=== PATIENT | male | born 1940 | race Caucasian/White ===

== ENCOUNTER 2017-10-20 06:51 | Day surgery (SDC) | payer MEDICARE, BC ==
[2017-10-13 16:11] VITALS: BMI 31.4
[2017-10-20 07:49] LABS: #Eosinphils 0.2 thou/uL (0.0-0.7); #Lymphocytes 2.2 thou/uL (1.20-3.40); #Monocytes 0.7 thou/uL (0.11-0.59); #Neutrophils 3.6 thou/uL (1.40-6.50); %Basophils 0.4 % (0.0-1.0); %Lymphocytes 33.5 % (21.0-51.0); %Monocytes 9.8 % (0.0-10.0); %Neutrophils 53.4 % (42.0-75.0); Hemoglobin 15.8 g/dL (14.0-18.0); Mean Corpuscular HGB CONC 34.4 g/dL (32.0-36.0); Mean Corpuscular Hemoglobin 32.2 pg (27.0-31.0); Mean Corpuscular Volume 93.7 fl (80.0-94.0); Mean Platelet Volume 9.6 fL (7.4-10.4); Platelet Count 177 thou/uL (130-400); RBC Distribution Width 12.7 % (11.5-14.5); White Blood Cell (WBC) Count 6.7 thou/uL (4.8-10.8)
[2017-10-20 07:58] LABS: PTT 31.4 SEC (22.9-36.1); Prothrombin Time 13.1 SEC (12.0-14.7)
[2017-10-20 08:01] LABS: ALT (SGPT) 34 U/L (8-55); AST (SGOT) 23 U/L (5-34); Albumin 4.7 g/dL (3.4-4.8); Alkaline Phosphatase 99 U/L (40-150); Anion Gap 14 mmol/L (10-20); BUN (Urea Nitrogen) 16 mg/dL (8.4-25.7); Bilirubin, Total 1.2 mg/dL (0.2-1.2); Calc. Creatinine Clearance 104 mL/min (70-130); Calcium 10.4 mg/dL (7.8-10.44); Carbon Dioxide 24 mmol/L (23-31); Cardiac Risk 3.3 (Less than 4.5); Chloride 105 mmol/L (98-107); Cholesterol 120 mg/dl (< 200 Desired); Estimated GFR-MDRD Greater than 90; Glucose 116 mg/dL (83-110); HDL Cholesterol 36 mg/dL (>60 Neg Risk); LDL Cholesterol, Calculated 62 mg/dL; Potassium 4.1 mmol/L (3.5-5.1); Protein, Total 7.7 g/dL (5.8-8.1); Sodium 139 mmol/L (136-145); Triglycerides 108 mg/dL (Less than 150)
[2017-10-20] MEDS ORDERED: Midazolam HCl 2 mg/2 ml Vial ONE (08:03)
[2017-10-20] MEDS ORDERED: Lidocaine 1% (PF) 30 ML VIAL ONE (08:03)
[2017-10-20] MEDS ORDERED: Fentanyl 100 MCG/2 ML VIAL ONE (08:03)
[2017-10-20] MEDS ORDERED: Diazepam 5 MG TAB ONE (08:18)
--- NOTE | 2017-10-20 08:52 | RAD ---
PORTABLE CHEST: History: Pre op. Comparison: 09-13-14 FINDINGS: Heart size is within normal limits with atherosclerotic changes of the aorta. Lungs are clear of infi ltrates. A dorsal column stimulator is present. IMPRESSION: No active intrathoracic disease. POS: [facility]
[2017-10-20] MEDS ORDERED: Iopamidol 370 76% 100 ML VIAL ONE (10:38)
--- NOTE | 2017-10-20 12:24 | EKG ---
Test Reason : PREOP Blood Pressure : / mmHG Vent. Rate : 066 BPM Atrial Rate : 066 BPM P-R Int : 152 ms QRS Dur : 108 ms QT Int : 406 ms P-R-T Axes : 008 -08 020 degrees QTc Int : 425 ms Sinus rhythm with Premature supraventricular complexes Inferior infarct , age undetermined Abnormal ECG When compared with ECG of 14-SEP-2014 09:22, Premature ventricular complexes are no longer Present Premature supraventricular complexes are now Present MN interval has decreased ST no longer elevated in Inferior leads Confirmed by JOVANNI CANALES ([id number]) on 10/20/2017 12:24:07 PM Referred By: TRACY Confirmed By:JOVANNI CANALES
--- NOTE | 2017-10-21 15:15 | HP ---
HISTORY OF PRESENT ILLNESS: Ms. Aguiar is a very pleasant 69-year-old gentleman who was seen and mounika luated by Christine Robles recently. He complained of shortness of breath. He continued to have shortn ess of breath despite medical therapy. His last stress test performed on 02/26/2017 showed a normal uptake on rest and stress with no significant ischemia. He does have a history of a stent placement to the OM branch in addition to the distal LAD. PAST MEDICAL HISTORY: Diabetes mellitus, CAD, spinal fusion, CVA. ALLERGIES: PENICILLIN. HOME MEDICATIONS: Include aspirin, hydrocodone, Nexium, tamsulosin, Tylenol, Ambien, Aspercreme, mul tivitamin, Pepcid, Lyrica, Toprol, fish oil, metformin, Eliquis, atorvastatin, lisinopril. REVIEW OF SYSTEMS: A 10-point review of systems is reviewed and is as above, otherwise negative. PHYSICAL EXAMINATION: VITAL SIGNS: Blood pressure 110/70, pulse 80, respirations 20. GENERAL: Patient is a pleasant male who is in no acute distress. The patient appears his stated age. NEUROLOGIC: The patient is alert and oriented times 3 with no focal neurologic deficits. HEENT: Sclerae without icterus. Mouth has moist mucous membranes with normal pallor. NECK: No JVD. Carotid upstroke brisk. No bruits bilaterally. LUNGS: Clear to auscultation with unlabored respirations. BACK: No scoliosis or kyphosis. CARDIAC: Regular rate and rhythm with normal S1 and S2. No S3 or S4 noted. No significant rubs, mur murs, thrills, or gallops noted throughout the precordium. PMI is not displaced. There is no parast ernal heave. ABDOMEN: Soft, nontender, nondistended. No peritoneal signs present. No hepatosplenomegaly. No abn ormal striae. EXTREMITIES: 2+ femoral and 2+ dorsalis pedis pulses. No cyanosis, clubbing, or edema. SKIN: No gross abnormalities. PERTINENT LABS: Creatinine 0.8. IMPRESSION: 1. Recurrent shortness of breath. 2. Coronary artery disease. 3. Status post stent placement. RECOMMENDATIONS: Mr. Aguiar has failed medical therapy with beta carmen treatment. He would like t o proceed with a more aggressive approach. I discussed the procedure of angiography plus PCI. I dis cussed the procedure in full detail with Mr. Aguiar to include but not limited to the following: Heidi th, stroke, MO, need for emergency surgery, loss of limb, bleeding, and infection, as well as a react ion to the dye causing kidney failure and needing long-term dialysis. I also discussed the risks of PCI to include all of the above including coronary dissection and perforation in addition to acute st ent thrombosis and restenosis. All questions about the procedure were answered. Given the above, th e patient agreed to proceed with coronary angiography and possible PCI. All questions were answered. Given the above, the patient agreed to proceed with above procedure. F maddie recommendations pending the above.
== END 2017-10-20 14:12 | disposition home or self-care (01) ==
LOC: CCL 06:51
PROVIDERS: ATTEND Internal Medicine Cardiovascular Disease
DX: I25.10 Atherosclerotic heart disease of native coronary artery without angina pectoris (principal); I42.9 Cardiomyopathy, unspecified; Z95.5 Presence of coronary angioplasty implant and graft; E11.9 Type 2 diabetes mellitus without complications; Z88.0 Allergy status to penicillin; Z79.01 Long term (current) use of anticoagulants; Z79.4 Long term (current) use of insulin; Z79.899 Other long term (current) drug therapy
CPT/HCPCS: 71045; 76942; 80053; 80061; 85025; 85610; 85730; 93005; 93458; 93798; C1769; 36415; 93010; 99152; J1644; J2001; J2250; J3010

== ENCOUNTER 2017-10-29 08:41 | Outpatient (CLI) | payer MEDICARE, BC ==
--- NOTE | 2017-10-29 09:30 | RAD ---
PA AND LATERAL CHEST: History: Chest wall pain. Comparison: 11-24-16 FINDINGS: The heart size is normal. The aorta is tortuous. Mild chronic change in the upper lung busby again s een. No lobar consolidation, pneumothoraces or pleural effusions identified. Dorsal stimulator leads are again present in the spine. Degenerative change in the thoracic spine. IMPRESSION: No radiographic evidence of acute cardiopulmonary process. POS: [facility]
== END 2017-10-29 08:42 | disposition home or self-care (01) ==
LOC: RAD-FRANK 08:41
PROVIDERS: ATTEND Nurse Practitioner Family
DX: R07.89 Other chest pain (principal)
CPT/HCPCS: 71046

== ENCOUNTER 2018-06-23 12:06 | Outpatient (CLI) | payer MEDICARE, BC ==
--- NOTE | 2018-06-23 14:14 | RAD ---
PA AND LATERAL VIEWS OF CHEST: Date: 06/23/18 HISTORY: Dyspnea. FINDINGS: Comparison made with exam of 10/29/17. The heart size is normal. Mild chronic changes in the lung busby are again seen. No lobar consolidat ion, pneumothoraces, or pleural effusions are noted. The aorta is tortuous. There are degenerative ch anges in the spine. Dorsal column stimulator leads are seen in the spine. IMPRESSION: No radiographic evidence of acute cardiopulmonary process. POS: [facility]
== END 2018-06-23 12:07 | disposition home or self-care (01) ==
LOC: RAD 12:06
PROVIDERS: ATTEND Internal Medicine Critical Care Medicine
DX: R06.00 Dyspnea, unspecified (principal)
CPT/HCPCS: 71046

== ENCOUNTER 2018-07-11 07:23 | Observation (INO) | payer MEDICARE, BC ==
[2018-07-08 14:07] VITALS: BMI 32.6
[2018-07-11 09:10] LABS: #Eosinphils 0.1 thou/uL (0.0-0.7); #Lymphocytes 1.8 thou/uL (1.20-3.40); #Monocytes 0.7 thou/uL (0.11-0.59); #Neutrophils 3.9 thou/uL (1.40-6.50); %Basophils 0.2 % (0.0-1.0); %Eosinophils 1.3 % (0.0-10.0); %Lymphocytes 27.7 % (21.0-51.0); %Neutrophils 59.7 % (42.0-75.0); Hemoglobin 14.6 g/dL (14.0-18.0); Mean Corpuscular HGB CONC 32.8 g/dL (32.0-36.0); Mean Corpuscular Hemoglobin 30.1 pg (27.0-31.0); Platelet Count 195 thou/uL (130-400); RBC Distribution Width 13.2 % (11.5-14.5); Red Blood Cell (RBC) Count 4.85 mill/uL (4.70-6.10); White Blood Cell (WBC) Count 6.5 thou/uL (4.8-10.8)
[2018-07-11 09:33] LABS: Anion Gap 13 mmol/L (10-20); BUN (Urea Nitrogen) 14 mg/dL (8.4-25.7); Calc. Creatinine Clearance 105 mL/min (70-130); Calcium 10.3 mg/dL (7.8-10.44); Carbon Dioxide 22 mmol/L (23-31); Chloride 108 mmol/L (98-107); Estimated GFR-MDRD Greater than 90; Glucose 134 mg/dL (83-110); Potassium 4.4 mmol/L (3.5-5.1); Sodium 139 mmol/L (136-145)
[2018-07-11] MEDS ORDERED: Levofloxacin 500 mg/D5W 100 ml Premix Bag ONE (09:37)
[2018-07-11] MEDS ORDERED: Clindamycin/D5W 900 mg/50 ml Premix Bag ONE (09:37)
[2018-07-11] MEDS ORDERED: Sodium Chloride 0.9% 10 ML ONE (10:14)
[2018-07-11] MEDS ORDERED: Fentanyl 100 MCG/2 ML VIAL ONE ×3 (10:14→13:21)
--- NOTE | 2018-07-11 14:09 | OP ---
DATE OF PROCEDURE: 07/11/2018 NUT ROASTER: Tod Jones PA-C PROCEDURE PERFORMED: Anterior cervical diskectomy C5-C6 and C6-C7, interbody arthrodesis, intervertebral biomechanical device, local morselized autograft, demineralized bone matrix, anterior titanium instrumentation C5 to C7. DESCRIPTION OF PROCEDURE: The patient was brought to the operating room and intubated. He was positioned supine in modest extension on gel-filled donut. An incision made in the right precervical area and dissected medial to the sternocleidomastoid muscle, identified the anterior cervical spinal. The level was confirmed by x-ray. We debrided the anterior osteophytes, placed distraction across the disk spaces, and completely decompressed the intervertebral discs from foramen to foramen. The bony endplates were then decorticated for the purpose of arthrodesis and appropriate-sized intervertebral biomechanical PEEK device was brought into the field and filled with demineralized bone matrix, local morselized autograft, and tapped in place securely at C5-C6 and C6-C7. Next, an anterior plate was brought into the field and secured to C5, C6, and C7 using two 14-mm screws at each level. The wound was extensively irrigated and maximum hemostasis was secured and the wound was closed in anatomic layers over drain. Job ID: [id number]
[2018-07-11] MEDS ORDERED: Lidocaine 1% PF 5 ML VIAL ONE (14:53)
[2018-07-11] MEDS ORDERED: ePHEDrine 50 MG/ML VIAL ONE (14:53)
[2018-07-11] MEDS ORDERED: PHENYLEPHRINE-NS 100 MCG/ML 10 ML SYRINGE ONE (14:53)
[2018-07-11] MEDS ORDERED: PROPOFOL 200 MG/20 ML VIAL ONE (14:53)
[2018-07-11] MEDS ORDERED: Rocuronium Bromide 10 MG/ML (10ML VIAL) ONE (14:53)
[2018-07-11] MEDS ORDERED: Dexamethasone 20 MG/5 ML VIAL ONE (14:53)
[2018-07-11] MEDS ORDERED: Ondansetron PF 4 MG/2 ML Vial ONE (14:53)
[2018-07-11] MEDS ORDERED: Glycopyrrolate 0.2 MG/ML 5 ML SYRINGE ONE (14:53)
[2018-07-11] MEDS ORDERED: Mag-Al 1200 mg/1200 mg/30 ML UDCUP PO PRN (17:06)
[2018-07-11] MEDS ORDERED: Promethazine HCl 25 MG/ML VIAL IM PRN (17:06)
[2018-07-11] MEDS ORDERED: Promethazine 25 MG TAB PO PRN (17:06)
[2018-07-11] MEDS ORDERED: Promethazine HCl 12.5 MG SUPP PR PRN (17:06)
[2018-07-11] MEDS ORDERED: HYDROcodone/Acetaminophen 10/325 mg Tablet PO PRN (17:06)
[2018-07-11] MEDS ORDERED: traMADol HCl 50 MG TAB PO PRN ×2 (17:06→18:18)
[2018-07-11] MEDS ORDERED: diphenhydrAMINE 25 MG CAP PO PRN ×2 (17:06→18:06)
[2018-07-11] MEDS ORDERED: Ondansetron PF 4 MG/2 ML Vial IVP PRN (17:06)
[2018-07-11] MEDS ORDERED: diphenhydrAMINE 50 MG/ML VIAL IVP PRN (17:06)
[2018-07-11] MEDS ORDERED: Morphine 4 MG/ML VIAL SLOW IVP PRN ×2 (17:06→17:15)
[2018-07-11] MEDS: HYDROcodone/Acetaminophen 10/325 mg Tablet PO PRN (17:21)
[2018-07-11] MEDS: Sodium Chloride 0.9% 1,000 ML IV SCH (17:21)
[2018-07-11] MEDS: Clindamycin/D5W 900 MG in Premix Bag 1 BAG IVPB SCH (17:21)
[2018-07-11] MEDS ORDERED: Acetaminophen 500 MG TAB PO PRN (18:04)
[2018-07-11] MEDS ORDERED: Hydrocortisone 1% Cream 30 GM TUBE TOP PRN (18:06)
[2018-07-11] MEDS ORDERED: Zolpidem Tartrate 5 MG TAB PO PRN (18:19)
[2018-07-11] MEDS: Tamsulosin HCl 0.4 MG CAP PO SCH ×2 (20:04)
[2018-07-11] MEDS: Fish Oil 1,000 MG CAP PO SCH (20:04)
[2018-07-11] MEDS: Pregabalin 50 MG CAP PO SCH (20:04)
[2018-07-11] MEDS: Milk Of Magnesia 30 ML UDCUP PO PRN (20:04)
[2018-07-11] MEDS: Atorvastatin Calcium 20 MG TAB PO SCH (20:06)
[2018-07-11] MEDS: tiZANidine HCl 4 MG TAB PO PRN (21:48)
[2018-07-12] MEDS: Clindamycin/D5W 900 MG in Premix Bag 1 BAG IVPB SCH (01:09)
[2018-07-12] MEDS: Sodium Chloride 0.9% 1,000 ML IV SCH ×2 (01:13→19:54)
[2018-07-12] MEDS: traMADol HCl 50 MG TAB PO PRN ×2 (01:14→12:22)
[2018-07-12] MEDS: Pregabalin 50 MG CAP PO SCH ×2 (08:02→21:05)
[2018-07-12] MEDS: Tamsulosin HCl 0.4 MG CAP PO SCH ×4 (08:04→21:09)
[2018-07-12] MEDS: Calcium Carbonate + Vit D 1 TAB PO SCH (08:04)
[2018-07-12] MEDS: Multivit, Therapeutic 1 TAB PO SCH (08:05)
[2018-07-12] MEDS: metFORMIN 500 MG TAB PO SCH ×2 (08:05→20:01)
[2018-07-12] MEDS: Lisinopril 10 MG TAB PO SCH (08:05)
[2018-07-12] MEDS: Fish Oil 1,000 MG CAP PO SCH ×2 (08:05→21:04)
--- NOTE | 2018-07-12 08:59 | PRG ---
DATE OF SERVICE: 07/12/2018 SUBJECTIVE: The patient is a 78-year-old male, status post C5-C7 ACDF. Following the surgery, he was transitioned to the [facility] floor, where his pain has also been well controlled with p.o. medications, he is tolerating a regular diet. He did have postoperative urinary retention and required indwelling You catheter placement. He has been restarted on Flomax b.i.d. The patient reports he has a history of enlarged prostate and urinary retention in the past, but he has never seen Urology. He is otherwise in minimal pain, ambulating appropriately, and has no other complaints at this time. OBJECTIVE: GENERAL: He is awake and alert, in no acute distress. His RYLAN output was minimal only 10 mL overnight. There is small amount of serosanguineous drainage in the drain. EXTREMITIES: He has free active range of all extremities. No focal motor weakness. No reflex asymmetry. His incision is dry, soft, and intact. PLAN: The plan is to discontinue his RYLAN drain and this will be removed by the nursing. We will consult Urology for his postop urinary retention and history of urinary issues in the past. We will continue to monitor, mobilize the patient, but depending on his progress, he could be discharged this afternoon or tomorrow. Job ID: [id number]
[2018-07-12] MEDS ORDERED: MINOCYCLINE PO SCH (09:00)
--- NOTE | 2018-07-12 10:25 | PDOC.PN ---
- Subjective Encounter Start Date: 07/12/18 Encounter Start Time: 07:45 Subjective: had trouble with urination earlier, feels better now -: no abd pain, sob or chest pain. No trouble swallowing or breathing -: is sitting in chair, family at bedside - Objective Resuscitation Status - Order Detail: 07/11/18 16:22 Resuscitation Status Routine Resuscitation Status: FULL: Full Resuscitation MAR Reviewed: Yes Vital Signs & Weight: Vital Signs (12 hours) Temp Pulse Resp BP BP Pulse Ox 07/12/18 08:05 126/77 07/12/18 08:00 98.0 F 76 16 126/64 96 07/12/18 04:34 98 F 73 17 107/64 93 L 07/12/18 00:33 98.8 F 90 17 127/67 94 L Weight Weight 215 lb I&O: 07/11/18 07/12/18 07/13/18 06:59 06:59 06:59 Intake Total 2475 Output Total 2545 960 Balance -70 -960 Result Diagrams: 07/11/18 08:55 07/11/18 08:55 Phys Exam - Physical Examination HEENT: PERRLA, moist MMs Neck: no JVD jono drain+, surgical site in dressing Respiratory: no wheezing, no rales Cardiovascular: RRR, no significant murmur Gastrointestinal: soft, non-tender, positive bowel sounds Musculoskeletal: no edema, pulses present Neurological: non-focal, moves all 4 limbs Psychiatric: normal affect, A&O x 3 Dx/Plan (1) s/p ant cervical diskectomy Status: Acute Comment: pod#1, C5-7 (2) CAD (coronary artery disease) Code(s): I25.10 - ATHSCL HEART DISEASE OF [place] CORONARY ARTERY W/O ANG PCTRS Status: Chronic Qualifiers: Coronary Disease-Associated Artery/Lesion type: [place] artery [place] vs. transplanted heart: [place] heart Associated angina: without angina Qualified Code(s): I25.10 - Atherosclerotic heart disease of [place] coronary artery without angina pectoris Comment: prior stent to LAD and OM (3) DM type 2 (diabetes mellitus, type 2) Status: Chronic Qualifiers: Diabetes mellitus lobsterman insulin use: without lobsterman use Diabetes mellitus complication status: with unspecified complications Qualified Code(s) : E11.8 - Type 2 diabetes mellitus with unspecified complications (4) HTN (hypertension) Code(s): I10 - ESSENTIAL (PRIMARY) HYPERTENSION Status: Chronic Qualifiers: Hypertension type: essential hypertension Qualified Code(s): I10 - Essential (primary) hypertension (5) Afib Code(s): I48.91 - UNSPECIFIED ATRIAL FIBRILLATION Status: Chronic Qualifiers: Atrial fibrillation type: paroxysmal Qualified Code(s): I48.0 - Paroxysmal atrial fibrillation (6) Dyslipidemia Code(s): E78.5 - HYPERLIPIDEMIA, UNSPECIFIED Status: Chronic (7) BPH (benign prostatic hyperplasia) Code(s): N40.0 - BENIGN PROSTATIC HYPERPLASIA WITHOUT LOWER URINRY TRACT SYMP Status: Acute Qualifiers: Lower urinary tract symptom presence: symptoms present Lower urinary tract symptom detail: urinary retention Qualified Code(s): N40.1 - Benign prostatic hyperplasia with lower urinary tract symptoms; R33.8 - Other retention of urine - Plan is on flomax bid for u.retention, urology consult has been placed by nsx -: continue lisinopril, metformin, lopressor, imdur, lipitor, fish oil, lyrica -: bladder scan for residual q6h and record for urology adv -: hemostable -: dc plan per nsx adv * . Review of Systems - Medications/Allergies Allergies/Adverse Reactions: Allergies Allergy/AdvReac Type Severity Reaction Status Date / Time adhesive Allergy Verified 07/08/18 14:09 Cephalosporins Allergy Verified 07/08/18 14:09 penicillin G Allergy Verified 07/08/18 14:09 Medications: Current Medications Acetaminophen (Tylenol) 1,000 mg PO Q6H PRN PRN Reason: Mild Pain (1-3) Hydrocodone Bitart/Acetaminophen ([place] 10/325) 1 tab PO Q4H PRN PRN Reason: PAIN (1-3) Last Admin: 07/11/18 21:47 Dose: 1 tab Hydrocodone Bitart/Acetaminophen ([place] 10/325) 2 tab PO Q4H PRN PRN Reason: PAIN (4-6) Last Admin: 07/11/18 17:21 Dose: 2 tab Al Hydroxide/Mg Hydroxide (Maalox) 30 ml PO Q4H PRN PRN Reason: Heartburn or Indigestion Atorvastatin Calcium (Lipitor) 20 mg PO HS MATHEW Last Admin: 07/11/18 20:06 Dose: 20 mg Calcium/Vitamin D (Caltrate 600 + Vit D) 1 tab PO DAILY [facility] Last Admin: 07/12/18 08:04 Dose: 1 tab Diphenhydramine HCl (Benadryl) 25 mg PO Q6H PRN PRN Reason: Itching Diphenhydramine HCl (Benadryl) 25 mg IVP Q6H PRN PRN Reason: Itching Diphenhydramine HCl (Benadryl) 25 mg PO HS PRN PRN Reason: Insomnia Fish Oil (Fish Oil) 1,000 mg PO BID [facility] Last Admin: 07/12/18 08:05 Dose: 1,000 mg Hydrocortisone/Aloe (Hydrocortisone 1% Cream) 0 gm TOP DAILY PRN PRN Reason: SKIN IRRITATION Sodium Chloride (Normal Saline 0.9%) 1,000 mls @ 75 mls/hr IV .[id number] [facility] Last Admin: 07/12/18 01:13 Dose: 1,000 mls Isosorbide Mononitrate (Imdur Er) 15 mg PO QAM [facility] Last Admin: 07/12/18 08:04 Dose: 15 mg Lisinopril (Zestril) 10 mg PO QAM [facility] Last Admin: 07/12/18 08:05 Dose: 10 mg Magnesium Hydroxide (Milk Of Magnesium) 30 ml PO Q12H PRN PRN Reason: Constipation Last Admin: 07/11/18 20:04 Dose: 30 ml Metformin HCl (Glucophage) 500 mg PO BID[facility] Last Admin: 07/12/18 08:05 Dose: 500 mg Metoprolol Succinate (Toprol Xl) 25 mg PO BID [facility] Last Admin: 07/12/18 08:05 Dose: 25 mg Morphine Sulfate (Morphine) 4 mg SLOW IVP Q1H PRN PRN Reason: SEVERE BREAKTHROUGH PAIN Morphine Sulfate (Morphine) 2 mg SLOW IVP Q1H PRN PRN Reason: Moderate Breakthrough Pain Multivitamins (Theragran) 1 tab PO DAILY [facility] Last Admin: 07/12/18 08:05 Dose: 1 tab Ondansetron HCl (Zofran) 4 mg IVP Q24H PRN PRN Reason: Nausea/Vomiting Pantoprazole Sodium (Protonix) 40 mg PO DAILY [facility] Last Admin: 07/12/18 08:05 Dose: 40 mg Minocycline 75 Mg (Capsule) 0 each PO DAILY [facility] Pregabalin (Lyrica) 200 mg PO BID [facility] Last Admin: 07/12/18 08:02 Dose: 200 mg Promethazine HCl (Phenergan) 12.5 mg IM Q4H PRN PRN Reason: Nausea/Vomiting Promethazine HCl (Phenergan) 12.5 mg PO Q4H PRN PRN Reason: Nausea/Vomiting Promethazine HCl (Phenergan Suppository) 12.5 mg NE Q4H PRN PRN Reason: Nausea/Vomiting Sodium Chloride (Flush - Normal Saline) 10 ml IVF Q12HR [facility] Last Admin: 07/12/18 10:23 Dose: Not Given Sodium Chloride (Flush - Normal Saline) 10 ml IVF PRN PRN PRN Reason: Saline Flush Tamsulosin HCl (Flomax) 0.4 mg PO BID [facility] Last Admin: 07/12/18 08:04 Dose: 0.4 mg Tamsulosin HCl (Flomax) 0.4 mg PO BID [facility] Last Admin: 07/12/18 08:09 Dose: Not Given Tizanidine HCl (Zanaflex) 4 mg PO Q6H PRN PRN Reason: MUSCLE SPASM Last Admin: 07/11/18 21:48 Dose: 4 mg Tramadol HCl (Ultram) 50 mg PO Q6H PRN PRN Reason: PAIN (1-3) Tramadol HCl (Ultram) 100 mg PO Q6H PRN PRN Reason: PAIN (4-6) Last Admin: 07/12/18 01:14 Dose: 100 mg Zolpidem Tartrate (Ambien) 10 mg PO HS PRN PRN Reason: Insomnia
[2018-07-12] MEDS: tiZANidine HCl 4 MG TAB PO PRN ×2 (12:23→21:52)
[2018-07-12 12:44] LABS: Bacteria/HPF None Seen HPF (None Seen); Hyaline Casts/LPF NONE SEEN LPF (0-3 Hyaline); Squamous Epithelial 0-3 HPF (0-3)
[2018-07-12] MEDS: HYDROcodone/Acetaminophen 10/325 mg Tablet PO PRN (14:57)
--- NOTE | 2018-07-12 15:46 | EKG ---
Test Reason : PREOP Blood Pressure : / mmHG Vent. Rate : 071 BPM Atrial Rate : 441 BPM P-R Int : 000 ms QRS Dur : 106 ms QT Int : 414 ms P-R-T Axes : 000 -18 020 degrees QTc Int : 449 ms Normal sinus rhythm Non-specific intra-ventricular conduction delay Cannot exclude Inferior infarct , age undetermined Abnormal ECG Confirmed by ALEX GUAJARDO ([id number]) on 07/12/2018 3:45:50 PM Referred By: LISA Confirmed By:ALEX GUAJARDO
[2018-07-12] MEDS: Cepastat Lozenges 1 LOZ PO PRN ×2 (15:59→21:09)
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
[2018-07-12] MEDS: Atorvastatin Calcium 20 MG TAB PO SCH (21:04)
[2018-07-12] MEDS: Milk Of Magnesia 30 ML UDCUP PO PRN (21:09)
[2018-07-13] MEDS: traMADol HCl 50 MG TAB PO PRN ×2 (07:28→15:23)
[2018-07-13] MEDS: metFORMIN 500 MG TAB PO SCH ×2 (07:29→17:35)
[2018-07-13] MEDS: Pregabalin 50 MG CAP PO SCH ×2 (09:30→20:17)
[2018-07-13] MEDS: Calcium Carbonate + Vit D 1 TAB PO SCH (09:31)
[2018-07-13] MEDS: Tamsulosin HCl 0.4 MG CAP PO SCH ×3 (09:31→20:20)
[2018-07-13] MEDS: Finasteride 5 MG TAB PO SCH (09:31)
[2018-07-13] MEDS: Lisinopril 10 MG TAB PO SCH (09:31)
[2018-07-13] MEDS: Sodium Chloride 0.9% 1,000 ML IV SCH (09:32)
[2018-07-13] MEDS: Multivit, Therapeutic 1 TAB PO SCH (09:32)
[2018-07-13] MEDS: Fish Oil 1,000 MG CAP PO SCH ×2 (09:32→20:20)
[2018-07-13] MEDS ORDERED: Dexamethasone 4 mg/ml Vial SLOW IVP SCH (11:00)
--- NOTE | 2018-07-13 11:38 | DIS ---
DATE OF ADMISSION: 07/11/2018 DATE OF DISCHARGE: 07/14/2018 The patient is a 78-year-old male, status post C5 to C7 ACDF. Following the surgery, he was transitioned to the Med/Surg floor, where his pain was well controlled with p.o. medications. He was tolerating a regular diet, and ambulating easily throughout the department. The patient did develop postop urinary retention. This required indwelling You catheter placement and Urology consult was placed. The patient was restarted on his home medication of Flomax and finasteride was also added to his regimen by Urology. They have recommended to leave You catheter in place and they will follow up in 1 week with void trial. The patient did run a low-grade temperature, on postop day #2 up to 100.4. His urinalysis is negative for infection. He had no other complaints such as shortness of breath or any other associated symptoms. The patient is awake, alert, comfortable, in no acute distress. He has free active range of motion of all extremities. No focal motor weakness. No reflex asymmetry. His incision is dry, soft, and intact. We will plan to dismiss the patient to home. I discussed home care precautions. The patient should hold his anticoagulants of aspirin and Plavix for the next 2 weeks. He has been provided scripts for hydrocodone and a muscle relaxer for pain. He has been provided with home instruction sheet. We will leave the You catheter in place and follow up with Urology in 1 week for void trial. Job ID: [id number] MTDD
--- NOTE | 2018-07-13 12:16 | PDOC.PN ---
- Subjective Encounter Start Date: 07/13/18 Encounter Start Time: 09:00 Subjective: c/o throat pain and some difficulty swallowing - Objective Resuscitation Status - Order Detail: 07/11/18 16:22 Resuscitation Status Routine Resuscitation Status: FULL: Full Resuscitation MAR Reviewed: Yes Vital Signs & Weight: Vital Signs (12 hours) Temp Pulse Resp BP BP BP BP 07/13/18 11:12 97.5 F L 74 18 104/63 07/13/18 09:31 129/70 07/13/18 07:36 99.4 F 81 16 104/54 L 07/13/18 04:00 100.2 F H 85 20 109/61 Pulse Ox 07/13/18 11:12 95 07/13/18 09:31 07/13/18 07:36 93 L 07/13/18 04:00 95 Weight Weight 215 lb I&O: 07/12/18 07/13/18 07/14/18 06:59 06:59 06:59 Intake Total 2475 1850 Output Total 2545 2860 Balance -70 -1010 Result Diagrams: 07/11/18 08:55 07/11/18 08:55 Phys Exam - Physical Examination HEENT: PERRLA, moist MMs Neck: no JVD has dressing over ant neck Respiratory: no wheezing, no rales Cardiovascular: RRR, no significant murmur Gastrointestinal: soft, non-tender, positive bowel sounds Musculoskeletal: pulses present leon+ Neurological: non-focal, moves all 4 limbs Psychiatric: normal affect, A&O x 3 Dx/Plan (1) s/p ant cervical diskectomy Status: Acute Comment: pod#2, C5-7 (2) CAD (coronary artery disease) Code(s): I25.10 - ATHSCL HEART DISEASE OF [place] CORONARY ARTERY W/O ANG PCTRS Status: Chronic Qualifiers: Coronary Disease-Associated Artery/Lesion type: [place] artery [place] vs. 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 Diabetes mellitus complication status: with unspecified complications Qualified Code(s) : E11.8 - Type 2 diabetes mellitus with unspecified complications (4) HTN (hypertension) Code(s): I10 - ESSENTIAL (PRIMARY) HYPERTENSION Status: Chronic Qualifiers: Hypertension type: essential hypertension Qualified Code(s): I10 - Essential (primary) hypertension (5) Afib Code(s): I48.91 - UNSPECIFIED ATRIAL FIBRILLATION Status: Chronic Qualifiers: Atrial fibrillation type: paroxysmal Qualified Code(s): I48.0 - Paroxysmal atrial fibrillation (6) Dyslipidemia Code(s): E78.5 - HYPERLIPIDEMIA, UNSPECIFIED Status: Chronic (7) BPH (benign prostatic hyperplasia) Code(s): N40.0 - BENIGN PROSTATIC HYPERPLASIA WITHOUT LOWER URINRY TRACT SYMP Status: Acute Qualifiers: Lower urinary tract symptom presence: symptoms present Lower urinary tract symptom detail: urinary retention Qualified Code(s): N40.1 - Benign prostatic hyperplasia with lower urinary tract symptoms; R33.8 - Other retention of urine - Plan hemostable -: is amb in room -: dc plan per nsx advice -: to f/u with PCP in 5 days * .
[2018-07-13] MEDS: Atorvastatin Calcium 20 MG TAB PO SCH (20:20)
[2018-07-14] MEDS: Sodium Chloride 0.9% 1,000 ML IV SCH (00:47)
[2018-07-14] MEDS: traMADol HCl 50 MG TAB PO PRN ×2 (04:28→11:37)
[2018-07-14] MEDS: Cepastat Lozenges 1 LOZ PO PRN (04:29)
[2018-07-14 08:02] VITALS: TEMP 98.4
[2018-07-14] MEDS: HYDROcodone/Acetaminophen 10/325 mg Tablet PO PRN (09:27)
[2018-07-14] MEDS: Pregabalin 50 MG CAP PO SCH (09:28)
[2018-07-14] MEDS: Fish Oil 1,000 MG CAP PO SCH (09:29)
[2018-07-14] MEDS: Finasteride 5 MG TAB PO SCH (09:29)
[2018-07-14] MEDS: metFORMIN 500 MG TAB PO SCH (09:29)
[2018-07-14] MEDS: Tamsulosin HCl 0.4 MG CAP PO SCH (09:30)
[2018-07-14] MEDS: Lisinopril 10 MG TAB PO SCH (09:32)
[2018-07-14] MEDS: Calcium Carbonate + Vit D 1 TAB PO SCH (09:32)
[2018-07-14 09:33] VITALS: BP 133/72
[2018-07-14] MEDS: Multivit, Therapeutic 1 TAB PO SCH (09:33)
--- NOTE | 2018-07-14 14:59 | PDOC.PN ---
- Subjective Encounter Start Date: 07/14/18 Encounter Start Time: 06:45 Subjective: ate his dinner with no difficulty, pain is better -: no sob, is amb in room - Objective Resuscitation Status - Order Detail: 07/11/18 16:22 Resuscitation Status Routine Resuscitation Status: FULL: Full Resuscitation MAR Reviewed: Yes Vital Signs & Weight: Vital Signs (12 hours) Temp Pulse Resp BP BP Pulse Ox 07/14/18 09:32 133/72 07/14/18 07:16 98.4 F 84 22 H 108/64 95 07/14/18 04:11 99.3 F 103 H 20 139/76 93 L Weight Weight 215 lb I&O: 07/13/18 07/14/18 07/15/18 06:59 06:59 06:59 Intake Total 1850 250 500 Output Total 2860 1700 750 Balance -1010 -1450 -250 Result Diagrams: 07/11/18 08:55 07/11/18 08:55 Phys Exam - Physical Examination HEENT: PERRLA, moist MMs Neck: no JVD surgical site is clean Respiratory: no wheezing, no rales Cardiovascular: RRR, no significant murmur Gastrointestinal: soft, non-tender, positive bowel sounds leon+ Musculoskeletal: no edema, pulses present Neurological: non-focal, moves all 4 limbs Psychiatric: normal affect, A&O x 3 Dx/Plan (1) s/p ant cervical diskectomy Status: Acute Comment: pod#2, C5-7 (2) CAD (coronary artery disease) Code(s): I25.10 - ATHSCL HEART DISEASE OF [place] CORONARY ARTERY W/O ANG PCTRS Status: Chronic Qualifiers: Coronary Disease-Associated Artery/Lesion type: [place] artery [place] vs. 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 Diabetes mellitus complication status: with unspecified complications Qualified Code(s) : E11.8 - Type 2 diabetes mellitus with unspecified complications (4) HTN (hypertension) Code(s): I10 - ESSENTIAL (PRIMARY) HYPERTENSION Status: Chronic Qualifiers: Hypertension type: essential hypertension Qualified Code(s): I10 - Essential (primary) hypertension (5) Afib Code(s): I48.91 - UNSPECIFIED ATRIAL FIBRILLATION Status: Chronic Qualifiers: Atrial fibrillation type: paroxysmal Qualified Code(s): I48.0 - Paroxysmal atrial fibrillation (6) Dyslipidemia Code(s): E78.5 - HYPERLIPIDEMIA, UNSPECIFIED Status: Chronic (7) BPH (benign prostatic hyperplasia) Code(s): N40.0 - BENIGN PROSTATIC HYPERPLASIA WITHOUT LOWER URINRY TRACT SYMP Status: Acute Qualifiers: Lower urinary tract symptom presence: symptoms present Lower urinary tract symptom detail: urinary retention Qualified Code(s): N40.1 - Benign prostatic hyperplasia with lower urinary tract symptoms; R33.8 - Other retention of urine - Plan hemostable -: is cleared for dc by nsx -: is eating well and amb now -: outpt f/u with urology and pcp * .
== END 2018-07-14 12:15 | disposition home or self-care (01) ==
LOC: SDC 07:23 → SURG A 10:00
PROVIDERS: ADMIT Neurological Surgery; ATTEND Neurological Surgery
PROC: 0RG20A0 Fusion of 2 or more Cervical Vertebral Joints with Interbody Fusion Device, Anterior Approach, Anterior Column, Open Approach (ICD-10-PCS; principal; 2018-07-11)
PROC: 0RG2070 Fusion of 2 or more Cervical Vertebral Joints with Autologous Tissue Substitute, Anterior Approach, Anterior Column, Open Approach (ICD-10-PCS; 2018-07-11)
DX: M48.02 Spinal stenosis, cervical region (principal); I10 Essential (primary) hypertension; E11.9 Type 2 diabetes mellitus without complications; E78.5 Hyperlipidemia, unspecified; I25.10 Atherosclerotic heart disease of native coronary artery without angina pectoris; I48.0 Paroxysmal atrial fibrillation; N40.0 Benign prostatic hyperplasia without lower urinary tract symptoms; Z86.73 Personal history of transient ischemic attack (TIA), and cerebral infarction without residual deficits; Z87.891 Personal history of nicotine dependence; Z90.89 Acquired absence of other organs; Z90.49 Acquired absence of other specified parts of digestive tract; Z96.642 Presence of left artificial hip joint; Z95.5 Presence of coronary angioplasty implant and graft; Z88.0 Allergy status to penicillin; Z91.09 Other allergy status, other than to drugs and biological substances; Z88.1 Allergy status to other antibiotic agents; Z79.01 Long term (current) use of anticoagulants; Z79.84 Long term (current) use of oral hypoglycemic drugs; Z79.82 Long term (current) use of aspirin; Z79.899 Other long term (current) drug therapy; Z98.890 Other specified postprocedural states
CPT/HCPCS: 20930; 20936; 22551; 22552; 22845; 22853 ×2; 51701; 51702; 76000; 80048; 81015; 85025; 87086; 93005; 96361 ×2; 96374; 96375; 96376; 97139; C1713 ×2; C1768; C1776; G0378 ×2; 51798; 93010; J1100; J1956; J2001; J2270; J2405; J2704; J3010; J3490

== ENCOUNTER 2018-07-26 09:47 | Outpatient (CLI) | payer MEDICARE, BC ==
--- NOTE | 2018-07-26 10:27 | RAD ---
TWO VIEWS CERVICAL SPINE: History: Cervical radiculopathy. M54.12 Technique: AP, lateral, and open mouth odontoid views of the cervical spine obtained. FINDINGS: Images demonstrate ACDF with fusion of the C5, 6, and 7 vertebral levels using ACDF plates and screws with intervertebral disc hardware also in place. There is mild disc space height loss and changes of spondylosis at C4-5. No evidence of acute cervical spine fractures or bony lesions seen. Dorsal column stimulator is seen in the midthoracic region. IMPRESSION: Lower cervical changes of ACDF and surgical fusion. POS: [facility]
== END 2018-07-26 09:48 | disposition home or self-care (01) ==
LOC: TBSIIMAG 09:47
PROVIDERS: ATTEND Neurological Surgery
DX: M54.12 Radiculopathy, cervical region (principal); Z98.1 Arthrodesis status
CPT/HCPCS: 72040

== ENCOUNTER 2018-08-17 09:22 | Outpatient (CLI) | payer MEDICARE, BC ==
--- NOTE | 2018-08-17 10:24 | CT ---
CT ANGIOGRAM CHEST WITH CONTRAST, AND 3-D VOLUME RENDERING CLINICAL INDICATION: Short of breath for years. Comparison exam: None FINDINGS: Pulmonary arteries:No significant filling defect is identified within the pulmonary arteries. Thoracic aorta: Vascular calcifications are seen in the thoracic aorta. There is no evidence of an ao rtic dissection. Pulmonary parenchymal consolidation:Edematous changes are seen in the upper lobes with areas of scarr ing in the upper lobes bilaterally. No consolidation or pleural fluid is seen. No pulmonary nodule is identified. Pleural effusion: None. However, there is minimal pleural thickening seen posteriorly on the right. Pneumothorax: None Osseous structures: Degenerative changes are seen in the spine. Dorsal column stimulator device is no tab in place. Postsurgical changes related to anterior cervical fusion are noted with bipedicular scr ews seen in the upper lumbar spine. Upper abdomen: No acute findings seen. IMPRESSION: 1. No CT evidence of a pulmonary embolus. 2. Vascular calcifications in the thoracic aorta. 3. Mild chronic lung changes.
== END 2018-08-17 09:23 | disposition home or self-care (01) ==
LOC: CT 09:22
PROVIDERS: ATTEND Internal Medicine Critical Care Medicine
DX: R06.00 Dyspnea, unspecified (principal); I70.0 Atherosclerosis of aorta; J98.4 Other disorders of lung
CPT/HCPCS: 71275; 94060; 94727; 94729

== ENCOUNTER 2018-08-30 15:08 | Outpatient (CLI) | payer MEDICARE, BC ==
--- NOTE | 2018-08-30 15:52 | ULT ---
Bilateral renal ultrasound CLINICAL INDICATION: Hematuria, BPH COMPARISON: FINDINGS: Right kidney: No solid mass, or hydronephrosis. Left kidney: No solid mass, or hydronephrosis. Urinary bladder: Normal IMPRESSION: Unremarkable exam.
== END 2018-08-30 15:09 | disposition home or self-care (01) ==
LOC: BICULT 15:08
PROVIDERS: ATTEND Urology
DX: N40.0 Benign prostatic hyperplasia without lower urinary tract symptoms (principal); R31.29 Other microscopic hematuria
CPT/HCPCS: 76770

== ENCOUNTER 2018-10-04 13:15 | Outpatient (CLI) | payer MEDICARE, BC ==
--- NOTE | 2018-10-04 14:04 | RAD ---
Five-view cervical spine: 10/04/2018 COMPARISON: 07/26/2018 HISTORY: Reevaluate following surgery FINDINGS: Incompletely imaged dorsal column stimulators overlie the upper thoracic spine. There is at herosclerotic calcification of the aortic arch. Open-mouth odontoid view demonstrates a normal-appearing dens and C1-2 articulation. Anterior discectomy and fusion hardware is present at C5 -6/C6-C7. No significant anterolisthesis or retrolisthesis. Mild disc space narrowing and anterior osteophyte formation at C3-4 and C4-5. Bilateral facet hypertrophy at C3-4 and C4-5. IMPRESSION: Postoperative and degenerative change within the cervical spine as above.
== END 2018-10-04 13:16 | disposition home or self-care (01) ==
LOC: TBSIIMAG 13:15
PROVIDERS: ATTEND Neurological Surgery
DX: M50.30 Other cervical disc degeneration, unspecified cervical region (principal); M47.812 Spondylosis without myelopathy or radiculopathy, cervical region; Z98.890 Other specified postprocedural states
CPT/HCPCS: 72040

== ENCOUNTER 2018-10-14 12:52 | Outpatient (CLI) | payer MEDICARE, BC ==
--- NOTE | 2018-10-14 13:20 | RAD ---
XR Lumbar Spine Min 4 View History: [Low back pain] Comparison: Lumbar spine MRI 2017 Findings: Extensive posterior spinal fusion hardware and right SI joint fusion hardware. Dorsal colum n stimulator. Left hemiarthroplasty. Moderate degenerative disease left SI joint. Mild levoscoliosis. No dilated loops of large or small bowel. No pathologic compression fracture. There is advanced degenerative disc space height loss of L1/L2, L 2/L3 and L3/L4. No significant listhesis. No translation with flexion or extension. Impression: Advanced degenerative changes. No abnormal translation with flexion or extension.
--- NOTE | 2018-10-14 15:04 | CT ---
CT Lumbar Spine WO Con History: [Low back pain.] Comparison: Lumbar spine radiograph same day Findings: Aortic contour is nonaneurysmal. Moderate vascular calcifications. No free intraperitoneal gas or fluid. Right SI joint fusion hardware. No hardware complication. Posterior spinal fusion hardware with radio lucent connecting band from L2-S1. Anterior blocking screw at L5/S1. Levels are as follows: L1/L2: Mild degenerative disc space height loss. Moderate facet arthrosis. Circumferential disc osteo phyte complex. Moderate left neural foraminal narrowing. Mild ligament flavum hypertrophy. Spinal canal measures 7 mm. L2/L3: Large left extraforaminal disc osteophyte complex. There is fusion of the disc space. Mild lef t neural foraminal narrowing. Spinal canal not significantly narrowed. L3/L4: Severe degenerative disc space height loss. Circumferential disc osteophyte complex. Moderate facet arthropathy. Moderate to severe left and mild right neural foraminal narrowing. L4/L5: Advanced degenerative disc space height loss. Vacuum disc phenomenon. Circumferential disc ost eophyte complex. Moderate facet arthropathy. Moderate to severe left and moderate right neural foraminal narrowing. L5/S1: Partial osseous fusion of the disc space. Advanced facet arthropathy. Broad-based posterior di sc osteophyte complex. Moderate bilateral neural foraminal narrowing. Impression: Advanced degenerative changes as described. No acute fracture or malalignment.
== END 2018-10-14 12:53 | disposition home or self-care (01) ==
LOC: BICCT 12:52
PROVIDERS: ATTEND Neurological Surgery
DX: M54.5 Low back pain (principal); M47.816 Spondylosis without myelopathy or radiculopathy, lumbar region
CPT/HCPCS: 72110; 72131

== ENCOUNTER 2020-05-09 13:25 | Outpatient (CLI) | payer MEDICARE, BC ==
--- NOTE | 2020-05-09 13:53 | RAD ---
LEFT SHOULDER THREE VIEWS: 05/09/20 HISTORY: Shoulder pain. There is moderate arthrosis of the AC joint. Minimal changes of the glenohumeral joint space. IMPRESSION: Mild arthritic changes of the shoulder, mainly related to the AC joint. POS: [facility]
== END 2020-05-09 13:26 | disposition home or self-care (01) ==
LOC: RAD-FRANK 13:25
PROVIDERS: ATTEND Nurse Practitioner Family
DX: M25.512 Pain in left shoulder (principal); M19.012 Primary osteoarthritis, left shoulder

== ENCOUNTER 2020-10-16 09:13 | Day surgery (SDC) | payer MEDICARE, BC ==
[2020-10-15 11:58] VITALS: BMI 30.4
[2020-10-16] MEDS ORDERED: Lidocaine 1% PF 5 ML VIAL ONE (12:11)
[2020-10-16] MEDS ORDERED: PROPOFOL 200 MG/20 ML VIAL ONE (12:11)
== END 2020-10-16 13:23 | disposition home or self-care (01) ==
LOC: CCL 09:13
PROVIDERS: ATTEND Internal Medicine Cardiovascular Disease
PROC: 5A2204Z Restoration of Cardiac Rhythm, Single (ICD-10-PCS; principal; 2020-10-16)
DX: I48.91 Unspecified atrial fibrillation (principal); I25.10 Atherosclerotic heart disease of native coronary artery without angina pectoris; E11.9 Type 2 diabetes mellitus without complications; N40.0 Benign prostatic hyperplasia without lower urinary tract symptoms; J30.2 Other seasonal allergic rhinitis; E78.5 Hyperlipidemia, unspecified; Z79.01 Long term (current) use of anticoagulants; Z79.82 Long term (current) use of aspirin; Z79.899 Other long term (current) drug therapy; Z87.891 Personal history of nicotine dependence; Z88.0 Allergy status to penicillin; Z88.1 Allergy status to other antibiotic agents; Z91.048 Other nonmedicinal substance allergy status
CPT/HCPCS: 92960; 93005; 93010; J2704

== ENCOUNTER 2021-04-16 14:00 | Inpatient (IN) | payer MEDICARE, BC ==
[2021-04-16 16:27] LABS: Hemoglobin 11.3 g/dL (13.5-17.5); Mean Corpuscular HGB CONC 30.5 g/dL (32.0-36.0); Mean Corpuscular Hemoglobin 26.7 pg (27.0-33.0); Mean Corpuscular Volume 87.5 fl (81.2-95.1); Platelet Count 270 10x3/uL (150-450); RBC Distribution Width 17.2 % (11.5-14.5); Red Blood Cell (RBC) Count 4.23 10x6/uL (4.32-5.72); White Blood Cell (WBC) Count 9.1 10x3/uL (3.5-10.5)
[2021-04-16 16:30] LABS: Bilirubin Neg (Negative); Blood, Urine Negative (Negative); Glucose, Urine (Dipstick) Normal (Negative); Ketone, Urine Negative (Negative); Leukocyte Negative (Negative); Nitrite Negative (Negative); Protein, Urine (Dipstick) 15 mg/dl (Neg-Trace); Urobilinogen Normal mg/dL (Less than 2)
[2021-04-16 16:31] LABS: Clarity Clear (Clear)
[2021-04-16 16:51] LABS: INR-International Normal Ratio 1.1; PTT 30.3 sec (22.0-33.0); Prothrombin Time 12.1 sec (9.5-12.1)
[2021-04-16 16:52] LABS: ALT (SGPT) 29 U/L (8-55); AST (SGOT) 20 U/L (5-34); Albumin 4.4 g/dL (3.4-4.8); Alkaline Phosphatase 87 U/L (40-110); Anion Gap 16 mmol/L (10-20); BUN (Urea Nitrogen) 21 mg/dL (8.4-25.7); Bilirubin, Total 1.3 mg/dL (0.2-1.2); Calc. Creatinine Clearance 0 mL/min (70-130); Calcium 9.7 mg/dL (7.8-10.44); Carbon Dioxide 24 mmol/L (23-31); Globulin 2.5 g/dL (2.4-3.5); Glucose 107 mg/dL (83-110); Protein, Total 6.9 g/dL (5.8-8.1)
[2021-04-16 17:18] LABS: Chloride 107 mmol/L (98-107); Potassium 5.5 mmol/L (3.5-5.1); Sodium 141 mmol/L (136-145)
[2021-04-17 12:15] LABS: SARS-CoV-2 PCR by NAA Not Detected (NotDetected)
[2021-04-18 10:28] VITALS: BMI 31.9
[2021-04-21] MEDS ORDERED: Heparin 10,000 UNITS/ 10 ML VIAL ONE (08:16)
[2021-04-21] MEDS ORDERED: Protamine Sulfate 50 MG/5 ML VIAL ONE (08:16)
[2021-04-21] MEDS ORDERED: Clindamycin/D5W 900 mg/50 ml Premix Bag ONE ×2 (08:16→10:39)
[2021-04-21 08:42] LABS: Anion Gap 14 mmol/L (10-20); BUN (Urea Nitrogen) 12 mg/dL (8.4-25.7); Calc. Creatinine Clearance 90 mL/min (70-130); Calcium 9.9 mg/dL (7.8-10.44); Carbon Dioxide 24 mmol/L (23-31); Chloride 106 mmol/L (98-107); Glucose 118 mg/dL (83-110); Potassium 4.5 mmol/L (3.5-5.1); Sodium 139 mmol/L (136-145)
[2021-04-21] MEDS ORDERED: Albumin 5% 500 ML ONE (09:17)
[2021-04-21] MEDS ORDERED: Fentanyl 100 MCG/2 ML VIAL ONE (10:53)
[2021-04-21] MEDS ORDERED: Phenylephrine 10 MG/ML VIAL ONE (11:13)
[2021-04-21] MEDS ORDERED: Ketorolac Tromethamine 30 MG/ML VIAL ONE (11:13)
[2021-04-21] MEDS ORDERED: Ondansetron PF 4 MG/2 ML Vial ONE (11:13)
[2021-04-21] MEDS ORDERED: Dexamethasone 20 MG/5 ML VIAL ONE (11:13)
[2021-04-21] MEDS ORDERED: Lidocaine 1% PF 5 ML VIAL ONE (11:13)
[2021-04-21] MEDS ORDERED: Glycopyrrolate 0.2 MG/ML 5 ML SYRINGE ONE (11:13)
[2021-04-21] MEDS ORDERED: PROPOFOL 200 MG/20 ML VIAL ONE (11:13)
[2021-04-21] MEDS ORDERED: Rocuronium Bromide 10 MG/ML (10ML VIAL) ONE (11:13)
[2021-04-21] MEDS ORDERED: PHENYLEPHRINE-NS 100 MCG/ML 10 ML SYRINGE ONE (11:42)
== END 2021-04-21 18:15 | disposition home or self-care (01) | DRG 274 ==
LOC: SURG A 04-21 07:29
PROVIDERS: ADMIT Internal Medicine Cardiovascular Disease; ATTEND Internal Medicine Cardiovascular Disease
PROC: 02L73DK Occlusion of Left Atrial Appendage with Intraluminal Device, Percutaneous Approach (ICD-10-PCS; principal; 2021-04-21)
PROC: B24BZZ4 Ultrasonography of Heart with Aorta, Transesophageal (ICD-10-PCS; 2021-04-21)
DX: I48.19 Other persistent atrial fibrillation (principal); I50.32 Chronic diastolic (congestive) heart failure; Z00.6 Encounter for examination for normal comparison and control in clinical research program; Z20.822 Contact with and (suspected) exposure to COVID-19; R29.6 Repeated falls; I25.10 Atherosclerotic heart disease of native coronary artery without angina pectoris; E11.9 Type 2 diabetes mellitus without complications; N40.0 Benign prostatic hyperplasia without lower urinary tract symptoms; J30.2 Other seasonal allergic rhinitis; E78.5 Hyperlipidemia, unspecified; I49.3 Ventricular premature depolarization; I11.0 Hypertensive heart disease with heart failure; I08.1 Rheumatic disorders of both mitral and tricuspid valves; I25.5 Ischemic cardiomyopathy; Z96.649 Presence of unspecified artificial hip joint; Z95.5 Presence of coronary angioplasty implant and graft; Z86.73 Personal history of transient ischemic attack (TIA), and cerebral infarction without residual deficits; Z98.1 Arthrodesis status; Z98.890 Other specified postprocedural states; Z85.51 Personal history of malignant neoplasm of bladder; Z79.82 Long term (current) use of aspirin; Z79.01 Long term (current) use of anticoagulants; Z79.899 Other long term (current) drug therapy; Z79.84 Long term (current) use of oral hypoglycemic drugs; Z91.048 Other nonmedicinal substance allergy status; Z88.1 Allergy status to other antibiotic agents; Z88.0 Allergy status to penicillin; Z87.891 Personal history of nicotine dependence
CPT/HCPCS: 33340; 36415; 36430; 80048; 80053; 81003; 85027; 85347; 85610; 85730; 86850; 86900; 86901; 93306; 93312; C1759; J1100; J1644; J1885; J2370; J2405; J2704; J2720; J3010; J3490; P9045; U0003; U0005

== ENCOUNTER 2021-04-16 14:28 | Outpatient (CLI) | payer MEDICARE, BC ==
[2021-04-16 16:27] LABS: Hemoglobin 11.3 g/dL (13.5-17.5); Mean Corpuscular HGB CONC 30.5 g/dL (32.0-36.0); Mean Corpuscular Hemoglobin 26.7 pg (27.0-33.0); Mean Corpuscular Volume 87.5 fl (81.2-95.1); Platelet Count 270 10x3/uL (150-450); RBC Distribution Width 17.2 % (11.5-14.5); Red Blood Cell (RBC) Count 4.23 10x6/uL (4.32-5.72); White Blood Cell (WBC) Count 9.1 10x3/uL (3.5-10.5)
[2021-04-16 16:30] LABS: Bilirubin Neg (Negative); Blood, Urine Negative (Negative); Glucose, Urine (Dipstick) Normal (Negative); Ketone, Urine Negative (Negative); Leukocyte Negative (Negative); Nitrite Negative (Negative); Protein, Urine (Dipstick) 15 mg/dl (Neg-Trace); Urobilinogen Normal mg/dL (Less than 2)
[2021-04-16 16:31] LABS: Clarity Clear (Clear)
[2021-04-16 16:51] LABS: INR-International Normal Ratio 1.1; PTT 30.3 sec (22.0-33.0); Prothrombin Time 12.1 sec (9.5-12.1)
[2021-04-16 16:52] LABS: ALT (SGPT) 29 U/L (8-55); AST (SGOT) 20 U/L (5-34); Albumin 4.4 g/dL (3.4-4.8); Alkaline Phosphatase 87 U/L (40-110); Anion Gap 16 mmol/L (10-20); BUN (Urea Nitrogen) 21 mg/dL (8.4-25.7); Bilirubin, Total 1.3 mg/dL (0.2-1.2); Calc. Creatinine Clearance 0 mL/min (70-130); Calcium 9.7 mg/dL (7.8-10.44); Carbon Dioxide 24 mmol/L (23-31); Globulin 2.5 g/dL (2.4-3.5); Glucose 107 mg/dL (83-110); Protein, Total 6.9 g/dL (5.8-8.1)
[2021-04-16 17:18] LABS: Chloride 107 mmol/L (98-107); Potassium 5.5 mmol/L (3.5-5.1); Sodium 141 mmol/L (136-145)
[2021-04-17 12:15] LABS: SARS-CoV-2 PCR by NAA Not Detected (NotDetected)
== END 2021-04-16 14:29 | disposition home or self-care (01) ==
LOC: LABBT 14:28
PROVIDERS: ATTEND Internal Medicine Cardiovascular Disease
DX: Z01.812 Encounter for preprocedural laboratory examination (principal); I48.19 Other persistent atrial fibrillation; Z20.822 Contact with and (suspected) exposure to COVID-19
CPT/HCPCS: 80053; 81003; 85027; 85610; 85730; 86850; 86900; 86901; 93005; U0003; U0005; 93010

== ENCOUNTER 2021-05-30 12:43 | Outpatient (CLI) | payer MEDICARE, BC ==
[2021-05-30 15:38] LABS: Hemoglobin 12.2 g/dL (13.5-17.5); Mean Corpuscular HGB CONC 31.4 g/dL (32.0-36.0); Mean Corpuscular Hemoglobin 26.1 pg (27.0-33.0); Mean Corpuscular Volume 83.3 fl (81.2-95.1); Mean Platelet Volume 11.3 fl (7.4-10.4); Platelet Count 347 10x3/uL (150-450); RBC Distribution Width 17.8 % (11.5-14.5); Red Blood Cell (RBC) Count 4.67 10x6/uL (4.32-5.72); White Blood Cell (WBC) Count 7.2 10x3/uL (3.5-10.5)
[2021-05-30 15:44] LABS: Anion Gap 15 mmol/L (10-20); BUN (Urea Nitrogen) 27 mg/dL (8.4-25.7); Calc. Creatinine Clearance 0 mL/min (70-130); Calcium 9.4 mg/dL (7.8-10.44); Carbon Dioxide 25 mmol/L (23-31); Chloride 103 mmol/L (98-107); Glucose 125 mg/dL (83-110); Potassium 4.5 mmol/L (3.5-5.1); Sodium 138 mmol/L (136-145)
[2021-05-30 23:49] LABS: SARS-CoV-2 PCR by NAA Not Detected (NotDetected)
== END 2021-05-30 12:44 | disposition home or self-care (01) ==
LOC: LABBT 12:43
PROVIDERS: ATTEND Internal Medicine Cardiovascular Disease
DX: Z01.812 Encounter for preprocedural laboratory examination (principal); I48.19 Other persistent atrial fibrillation; Z20.822 Contact with and (suspected) exposure to COVID-19
CPT/HCPCS: 80048; 85027; U0003; U0005

== ENCOUNTER 2021-06-04 08:09 | Day surgery (SDC) | payer MEDICARE, BC ==
[2021-05-27 10:23] VITALS: BMI 31.9
[2021-06-04] MEDS ORDERED: Lidocaine 1% PF 5 ML VIAL ONE (09:34)
[2021-06-04] MEDS ORDERED: PROPOFOL 40 ML ONE (09:34)
[2021-06-05] MEDS ORDERED: Clopidogrel Bisulfate 75 MG TAB PO SCH (09:00)
== END 2021-06-04 11:39 | disposition home or self-care (01) ==
LOC: CCL 08:09
PROVIDERS: ATTEND Internal Medicine Cardiovascular Disease
PROC: B246ZZ4 Ultrasonography of Right and Left Heart, Transesophageal (ICD-10-PCS; principal; 2021-06-04)
DX: I48.19 Other persistent atrial fibrillation (principal); Q21.1 Atrial septal defect; I08.1 Rheumatic disorders of both mitral and tricuspid valves; Z79.82 Long term (current) use of aspirin; Z79.84 Long term (current) use of oral hypoglycemic drugs; Z79.899 Other long term (current) drug therapy; Z88.0 Allergy status to penicillin; Z88.1 Allergy status to other antibiotic agents; Z91.048 Other nonmedicinal substance allergy status; Z95.818 Presence of other cardiac implants and grafts; Z95.5 Presence of coronary angioplasty implant and graft
CPT/HCPCS: 93312; J2704

== ENCOUNTER 2022-04-30 13:17 | Outpatient (CLI) | payer MEDICARE, BC | END 2022-04-30 13:18 | disposition home or self-care (01) | LOC: RAD-FRANK 13:17 | PROVIDERS: ATTEND Nurse Practitioner Family | DX: L72.9 Follicular cyst of the skin and subcutaneous tissue, unspecified (principal) | CPT/HCPCS: 71046 ==

== ENCOUNTER 2022-07-01 14:33 | Outpatient (CLI) | payer MEDICARE, BC | END 2022-07-01 14:34 | disposition home or self-care (01) | LOC: ULT 14:33 | PROVIDERS: ATTEND Nurse Practitioner Family | DX: R07.89 Other chest pain (principal); M79.89 Other specified soft tissue disorders ==

== ENCOUNTER 2022-09-11 13:41 | Outpatient (CLI) | payer MEDICARE, BC ==
[~2022-09-11 13:41] MED LIST: Iopamidol 370 76% 100 ML VIAL ONE
== END 2022-09-11 13:42 | disposition home or self-care (01) ==
LOC: CT 13:41
PROVIDERS: ATTEND Physician Assistant
DX: R22.2 Localized swelling, mass and lump, trunk (principal); M19.09 Primary osteoarthritis, other specified site; J43.8 Other emphysema
CPT/HCPCS: 71260; 82565